=== PATIENT | male | born 1960 | race Caucasian/White ===

== ENCOUNTER 2018-02-01 20:56 | Emergency (ER) | payer BC ==
[~2018-02-01] VITALS: Ht 175.3 cm; Wt 95.3 kg
[2018-02-01 21:30] VITALS: BP 131/74
[2018-02-01] MEDS ORDERED: LORazepam Inj 2mg/ml 1ml IV ONE (21:30)
[2018-02-01 22:03] LABS: ANION GAP 7 mmol/L (5-15); BLOOD UREA NITROGEN 19 mg/dL (7-18); CALCIUM 9.5 MG/DL (8.5-10.1); CARBON DIOXIDE 27 MMOL/L (21-32); CHLORIDE 102 MMOL/L (98-107); CREATININE 1.1 MG/DL (0.55-1.30); POTASSIUM 3.6 MMOL/L (3.5-5.1); SODIUM 135 MMOL/L (136-145)
[2018-02-01 22:05] LABS: BASOPHILS % (AUTO) 1.2 % (0.0-2.0); EOSINOPHILS % (AUTO) 3.1 % (0.0-3.0); HEMATOCRIT 44.8 % (42.0-52.0); HEMOGLOBIN 15.4 G/DL (14.2-18.0); LYMPHOCYTES % (AUTO) 46.3 % (20.0-45.0); MEAN CORPUSCULAR VOLUME 87 FL (80-99); NEUTROPHILS % (AUTO) 41.6 % (45.0-75.0); PLATELET COUNT 156 K/UL (150-450); RED BLOOD COUNT 5.15 M/UL (4.70-6.10); RED CELL DISTRIBUTION WIDTH 11.6 % (11.6-14.8); WHITE BLOOD COUNT 6.5 K/UL (4.8-10.8)
--- NOTE | 2018-02-01 22:59 | Emergency Room Report ---
History of Present Illness General Chief Complaint: Dizziness Source: Patient Present Illness HPI This is a 58-year-old male with history of high blood pressure and diabetes but noncompliant with his medication. He presented with chief complaint of dizziness and room spinning. He was driving and when he turned his head he felt everything was spinning. He had one episode of vomiting. He could not drive so he called 911. [place] lightheaded and weak. No chest pain. No diarrhea. No fever or chills. No palpitation. Never had this problem before. No recent cold symptoms. Allergies: Coded Allergies: No Known Allergies (Unverified , 02/01/18) Patient History Past Medical History: see triage record, old chart reviewed, DM, HTN Past Surgical History: none Pertinent Family History: none Social History: Denies: smoking Immunizations: other Reviewed Nursing Documentation: PMH: Agreed, PSxH: Agreed Nursing Documentation-PMH Hx Diabetes: Yes Review of Systems Eye: Denies: eye pain, blurred vision ENT: Denies: ear pain, nose congestion, throat swelling Respiratory: Denies: cough, shortness of breath Cardiovascular: Denies: chest pain, palpitations Gastrointestinal: Denies: abdominal pain, diarrhea, nausea, vomiting Musculoskeletal: Denies: back pain, joint pain Skin: Denies: rash Neurological: Reports: dizziness, Denies: headache, numbness Endocrine: Denies: increased thirst, increased urine Hematologic/Lymphatic: Denies: easy bruising All Other Systems: negative except mentioned in HPI Physical Exam Vital Signs Date Time Temp Pulse Resp B/P (MAP) Pulse Ox O2 Delivery O2 Flow Rate FiO2 02/01/18 20:53 97.5 88 18 131/74 97 Room Air 97.5 vitals unremarkable Sp02 EP Interpretation: reviewed, normal General Appearance: well appearing, no apparent distress, alert Head: normocephalic, atraumatic Eyes: bilateral eye PERRL, bilateral eye EOMI ENT: hearing grossly normal, normal pharynx Neck: full range of motion, supple, no meningismus Respiratory: chest non-tender, lungs clear, normal breath sounds Cardiovascular #1: regular rate, rhythm, no murmur Gastrointestinal: normal bowel sounds, non tender, no mass, no organomegaly, no bruit, non-distended Musculoskeletal: back normal, gait/station normal, normal range of motion Psychiatric: mood/affect normal Skin: warm/dry Medical Decision Making Diagnostic Impression: Primary Impression: Dizziness Additional Impression: Vertigo ER Course Patient presents with vertigo symptoms. His symptoms resolved after Ativan. Labs unremarkable. Even though he is been noncompliant with his medication, his blood pressure is unremarkable and his glucose is slightly elevated. He did say that he been losing weight. CT scan with possible subdural hematoma. He has no trauma. His blood pressure is not elevated. I call in the mobile MRI unit to get MRI to rule out any bleed. It is positive, will transfer. If not he can be discharged home. The mobile MRI unit was unavailable because the MRI machine was not working per x-ray tech when he spoke with person in charge. I also discussed the case with [facility]. They cannot accept the patient to the ER for MRI in the middle the night. If he was transferred for bleed, they would admit him to the floor and MRI in the morning. Since the reading was equivocal and patient has been stable and asymptomatic, I will keep him here for MRI in the morning. This can be done faster than patient being transferred to [facility]. The patient will be transferred. I explained this to the patient and his and expressed understanding and they are willing to stay until the morning for MRI. I will sign this patient out to Dr. Pop for MRI and final disposition. Lab Results Impression labs unremarkable CT/MRI/US Diagnostic Results CT/MRI/US Diagnostic Results : Imaging Test Ordered: CT head Impression read by radiologist. There is some thickening of the falx measuring 2mm. cannot exclude SDH. no midline shift. Last Vital Signs Date Time Temp Pulse Resp B/P (MAP) Pulse Ox O2 Delivery O2 Flow Rate FiO2 02/01/18 20:53 97.5 88 18 131/74 97 Room Air 97.5 Status: improved Condition: Stable Referrals: NOT CHOSEN MARGIE/,REFERRING (PCP) SHAMEKA GORDON M.D. Feb 01, 2018 22:59
[2018-02-02 00:14] LABS: APPEARANCE,URINE CLEAR; BILIRUBIN, URINE NEGATIVE (NEGATIVE); COLOR,URINE PALE YELLOW; GLUCOSE, URINE (UA) 4+ (NEGATIVE); KETONES,URINE 3+ (NEGATIVE); LEUKOCYTE ESTERASE ,URINE NEGATIVE (NEGATIVE); NITRITE,URINE NEGATIVE (NEGATIVE); PH,URINE 8 (4.5-8.0); PROTEIN,URINE NEGATIVE (NEGATIVE); UROBILINOGEN,URINE 1 MG/DL (0.0-1.0)
[2018-02-02 01:00] VITALS: BP 129/77
[2018-02-02 05:00] VITALS: BP 137/81
--- NOTE | 2018-02-02 08:43 | Diagnostic Imaging Report ---
Indication: Dizziness and vertigo. Abnormal head CT Technique: The head was imaged in a 1.5 Katherine magnet. Sequences obtained include sagittal and axial T1 FLAIR, axial T2 fast spin echo with fat saturation, axial T2 FLAIR, diffusion and ADC map. Comparison: CT head 02/01/2018 Findings: The size, contour, and configuration of the sulci, ventricles, and basal cisterns appear normal. Perrin-white differentiation is normal. There is no restricted diffusion. There is no mass effect, midline shift, edema, or hemorrhage. There are no abnormal extra-axial or intra-axial fluid collections. The corpus callosum is unremarkable. The brainstem and cerebellum are unremarkable. The sella is unremarkable. Bone marrow signal within the visualized osseous structures appears age appropriate and unremarkable otherwise. There is mucosal thickening within paranasal sinuses. Impression: Negative MRI brain without contrast. No evidence of a subdural hematoma. Chronic sinusitis
[2018-02-02 09:00] VITALS: BP 136/86
[2018-02-02] MEDS ORDERED: MECLIZINE HCL25 M1 ORAL (09:06)
[2018-02-02 09:10] VITALS: BP 137/81
--- NOTE | 2018-02-02 10:05 | Diagnostic Imaging Report ---
Indication: Dizziness and vertigo Technique: Contiguous 5 mm thick transaxial imaging of the head obtained in a Siemens Sensation [address] scanner. Soft tissue and bone windows generated. Automatic Exposure Control was utilized. Total Dose length Product (DLP): [address] Dose Index Volume (CTDIvol): 70.38 mGy Comparison: none Findings: The size and configuration of the cortical sulci, basal cisterns, and ventricles are within normal limits for age. There is no mass effect, midline shift, or edema identified. There is no evidence of acute hemorrhage or abnormal intra-axial or extra-axial fluid collections. The bones and soft tissues are unremarkable. Impression: No mass effect, edema or acute bleed. The CT scanner at [facility] is accredited by the [employer] and the scans are performed using dose optimization techniques as appropriate to a performed exam including Automatic Exposure control.
== END 2018-02-02 09:10 | disposition home or self-care (01) ==
LOC: EDBD 20:56 → EMR 22:19
DX: R42 Dizziness and giddiness (principal); E11.9 Type 2 diabetes mellitus without complications; I10 Essential (primary) hypertension
CPT/HCPCS: 36415; 70450; 70551; 80048; 80307; 81001; 84484; 85025; 96361; 96374; 99284